=== PATIENT | male | born 1985 | race American Indian/Alaskan Native ===

== ENCOUNTER 2020-04-26 21:14 | Emergency (ER) | payer MEDICARE ==
[2020-04-27 00:59] VITALS: BP 130/74
--- NOTE | 2020-04-27 01:09 | Event Note ---
ED Screening Note Date of service: 04/27/20 Time: 01:06 ED Screening Note: This initial assessment/diagnostic orders/clinical plan/treatment(s) is/are subject to change based on patients health status, clinical progression and re- assessment by fellow clinical providers in the ED. Further treatment and workup at subsequent clinical providers discretion. Patient/guardian urged not to elope from the ED as their condition may be serious if not clinically assessed and managed. Initial orders include: 34-year-old Mr. Josr Meredith is brought by his emergency planner. Television Equipment Operator states that patient resides in a retirement and he was missing from the retirement for 2 days. Patient has not been able to get his injection of Abilify for 22 days because it was not available at the pharmacy. Television Equipment Operator states he now has the Abilify and is requesting that patient get the IM injection of the Abilify. Television Equipment Operator states that his nurse usually gives the patient the Abilify but because he was missing she will not be able to give it until Tuesday. he is concerned that the patient will run off again. Television Equipment Operator requesting psych evaluation for patient. Patient is calm cooperative and in no distress.
--- NOTE | 2020-04-27 06:46 | Emergency Department Report ---
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 Patient is supposed to take Abilify 400 mg IM monthly. He is 22 days past due from receiving his shot because the pharmacy did not have it in stock. They now have the medicine but the nurse that comes to the long term would not be available to provide it for several days. Patient also was missing from a long term for 2 days. Patient is calm and cooperative does not endorse psychosis, suicidal, or homicidal ideation. No physical complaints reported. Tool Grinder Operator Surface at bedside denies that patient is violent or feeling like patient is a danger to himself or others at this time. - Related Data Allergies Allergy/AdvReac Type Severity Reaction Status Date / Time No Known Allergies Allergy Unverified 04/27/20 01:06 ED Review of Systems ROS: Stated complaint: MH EVAL Other details as noted in HPI Comment: All other systems reviewed and negative ED Past Medical Hx - Past Medical History Previous Medical History?: Yes Hx Psychiatric Treatment: Yes (Schizophrenia, Depression, Mood Diorder,) - Surgical History Past Surgical History?: No - Social History Smoking Status: Never Smoker Substance Use Type: Marijuana ED Physical Exam - General Limitations: No Limitations - Other Other exam information: General: No acute distress Head: Atraumatic Eyes: normal appearance ENT: Moist mucous membranes Neck: Normal appearance, no midline tenderness Chest: Clear to auscultation bilaterally CV: Regular rate and rhythm Abdomen: Soft, normal bowel sounds, nontender, nondistended, no rebound or guarding Back: Normal inspection Extremity: Normal inspection, full range of motion Neuro: Alert O x 3, no facial asymmetry, speech clear, no gross motor sensory deficit Psych: Appropriate behavior Skin: No rash ED Course Vital Signs 04/27/20 00:48 Temperature 98 F Pulse Rate 69 Respiratory 18 Rate Blood Pressure 130/74 O2 Sat by Pulse 98 Oximetry ED Medical Decision Making - Medical Decision Making Patient presents with his Abilify at the bedside but the long term is not qualified to administer the medication therefore they came to the ED. Nurse provided intramuscular Abilify shot. Patient does not have psychosis, violent behavior, or suicidal or homicidal ideation and therefore does not meet 1013 criteria. No physical complaints reported. Patient will be discharged back to long term. Critical Care Time: No Critical care attestation.: If time is entered above; I have spent that time in minutes in the direct care of this critically ill patient, excluding procedure time. ED Disposition Clinical Impression: Schizophrenia, Encounter for medication administration Disposition: TO HOME OR SELFCARE Is pt being admited?: No Does the pt Need Aspirin: No Condition: Stable Instructions: Schizophrenia Additional Instructions: Continue your current medication as prescribed. Follow-up with your doctor or doctor/clinic provided. Return if symptoms worsen as indicated by your discharge instructions. Referrals: PRIMARY CARE, [facility] Time of Disposition: 06:46
== END 2020-04-27 07:04 | disposition home or self-care (01) ==
LOC: ED 21:14
DX: F20.9 Schizophrenia, unspecified (principal); F12.10 Cannabis abuse, uncomplicated; Z51.81 Encounter for therapeutic drug level monitoring
CPT/HCPCS: 99282